=== PATIENT | female | born 1980 | race Caucasian/White ===

== ENCOUNTER → 2016-06-16 | Outpatient (CLI) | payer MEDICAID ==
[~2016-06-16] MED LIST: DOXYCYCLINE 10100 MG PO; MOTRIN 600600 MG/TAB PO; NORCO 325 MG-51 TAB PO; QUASENSE 30 MCG1 TAB PO; RITALIN 20M20 MG/TAB PO
== END ==
LOC: COL.RAD 12:03
DX: B27.90 Infectious mononucleosis, unspecified without complication (principal)

== ENCOUNTER 2016-11-02 10:27 | Emergency (ER) | payer MEDICAID ==
[~2016-11-02] VITALS: Ht 165.1 cm; Wt 83.0 kg
[2016-11-02 10:30] VITALS: TEMP 98.4
[2016-11-02] MEDS ORDERED: RITALIN 20M20 MG/TAB PO (10:35)
[2016-11-02] MEDS ORDERED: MOTRIN 600600 MG/TAB PO (10:35)
[2016-11-02] MEDS ORDERED: DOXYCYCLINE 10100 MG PO (10:36)
[2016-11-02] MEDS ORDERED: QUASENSE 30 MCG1 TAB PO (10:36)
[2016-11-02 11:30] LABS: BASO % 0.6 % (0.0-2.0); EOS # 0.2 (0.0-0.7); EOS % 2.9 % (0-4.0); GRAN # 4.5 (1.4-6.5); GRAN % 65.8 % (42.2-75.2); HEMATOCRIT 40.9 % (37.0-47.0); LYMPH # 1.7 (1.2-3.4); LYMPH % 24.6 % (20.0-51.0); MEAN CELL VOLUME 91 fl (80.0-100.0); MEAN CORPUSCULAR HEMOGLOBIN 31 pg (27.0-31.0); MEAN CORPUSCULAR HGB CONC 34 g/dl (33.0-37.0); MONO # 0.4 (0.1-0.6); MONO % 5.8 % (1.7-9.3); PLATELET COUNT 217 K/mm3 (130-400); RED BLOOD COUNT 4.52 M/mm3 (4.10-5.30); REDCELL DISTRIBUTION WIDTH-CV 12.2 % (11.5-14.5); WHITE BLOOD COUNT 6.9 K/mm3 (4.8-10.8)
[2016-11-02 11:42] LABS: ALBUMIN 4.3 gm/dL (3.5-5.0); BILIRUBIN,TOTAL 0.4 mg/dL (0.0-1.0); C-REACTIVE PROTEIN 0.9 mg/dL (0.0-0.9); CALCIUM 9.2 mg/dL (8.4-10.2); CREATININE, serum 0.71 mg/dL (0.52-1.25); POTASSIUM 4.1 mmol/L (3.4-5.0); TOTAL PROTEIN 7.6 gm/dL (6.4-8.2)
[2016-11-02] MEDS ORDERED: NORCO 325 MG-51 TAB PO (13:13)
[2016-11-02 13:50] LABS: PH 6 (5-8); URINE APPEARANCE Clear; URINE BACTERIA Rare /hpf; URINE BILIRUBIN Negative (NEGATIVE); URINE BLOOD 1+ (NEGATIVE); URINE COLOR Straw; URINE GLUCOSE Negative (NEGATIVE); URINE KETONE Negative (NEGATIVE); URINE UROBILINOGEN Negative (NEGATIVE); URINE WBC 0-2 /hpf
[2016-11-02 14:09] VITALS: BP 98/60; PULSE 61
== END 2016-11-02 14:10 | disposition home or self-care (01) ==
LOC: COL.ER 10:27
PROVIDERS: Physician Assistant
DX: R51 Headache (principal); M54.2 Cervicalgia
CPT/HCPCS: J1200; J1885; J2765; J7030

== ENCOUNTER → 2016-11-14 | Outpatient (CLI) | payer MEDICAID | LOC: COL.RAD 10:21 | DX: R51 Headache (principal); R90.89 Other abnormal findings on diagnostic imaging of central nervous system | CPT/HCPCS: A9585 ==

== ENCOUNTER 2017-07-12 18:30 | Emergency (ER) | payer SELFPAY ==
[~2017-07-12] VITALS: Ht 165.1 cm; Wt 81.8 kg
[2017-07-12 18:33] VITALS: BP 124/71; TEMP 98.6
[2017-07-12 19:38] VITALS: PULSE 88
== END 2017-07-12 19:39 | disposition home or self-care (01) ==
LOC: COL.ER 18:30
DX: M25.531 Pain in right wrist (principal); X50.3XXA Overexertion from repetitive movements, initial encounter; Y92.009 Unspecified place in unspecified non-institutional (private) residence as the place of occurrence of the external cause

== ENCOUNTER 2018-02-15 13:49 | Emergency (ER) | payer SELFPAY ==
[~2018-02-15] VITALS: Ht 165.1 cm; Wt 75.0 kg
[2018-02-15 14:00] VITALS: BP 102/76; PULSE 94; TEMP 98.3
[2018-02-15 14:26] LABS: COLLECTION METHOD CLEAN CATCH
[2018-02-15 14:37] LABS: MUCOUS Present /lpf; PH 5 (5-8); URINE APPEARANCE Clear; URINE BACTERIA None Seen /hpf; URINE BILIRUBIN Negative (NEGATIVE); URINE BLOOD 2+ (NEGATIVE); URINE COLOR Yellow; URINE GLUCOSE Negative (NEGATIVE); URINE KETONE Negative (NEGATIVE); URINE LEUKOCYTE ESTERASE Negative (NEGATIVE); URINE NITRATE Negative (NEGATIVE); URINE PROTEIN(semi-quant) Negative (NEGATIVE); URINE UROBILINOGEN Negative (NEGATIVE)
[2018-02-15 15:45] LABS: BASO # 0.1 (0.0-0.2); BASO % 0.6 % (0.0-2.0); EOS # 0.7 (0.0-0.7); EOS % 6.8 % (0-4.0); GRAN % 66.6 % (42.2-75.2); HEMATOCRIT 45.1 % (37.0-47.0); HEMOGLOBIN 15.3 g/dl (12.5-16.0); LYMPH % 19.2 % (20.0-51.0); MEAN CELL VOLUME 90 fl (80.0-100.0); MEAN CORPUSCULAR HEMOGLOBIN 31 pg (27.0-31.0); MEAN CORPUSCULAR HGB CONC 34 g/dl (33.0-37.0); MEAN PLATELET VOLUME 10.6 fl (7.4-10.4); MONO # 0.7 (0.1-0.6); MONO % 6.5 % (1.7-9.3); PLATELET COUNT 217 K/mm3 (130-400)
[2018-02-15 15:59] LABS: ALBUMIN 4.5 gm/dL (3.5-5.0); BILIRUBIN,TOTAL 0.3 mg/dL (0.0-1.0); C-REACTIVE PROTEIN 1.5 mg/dL (0.0-0.9); CALCIUM 9.3 mg/dL (8.4-10.2); CREATININE, serum 0.66 mg/dL (0.52-1.25); POTASSIUM 4.2 mmol/L (3.4-5.0); TOTAL PROTEIN 7.9 gm/dL (6.4-8.2)
[2018-02-15] MEDS ORDERED: CIPRO 500MG TA500 MG PO (17:39)
== END 2018-02-15 17:47 | disposition home or self-care (01) ==
LOC: COL.ER 13:49
PROVIDERS: Emergency Medicine
DX: R10.30 Lower abdominal pain, unspecified (principal); A69.20 Lyme disease, unspecified; Z90.49 Acquired absence of other specified parts of digestive tract; Z90.721 Acquired absence of ovaries, unilateral; Z88.0 Allergy status to penicillin; Z88.2 Allergy status to sulfonamides; Z88.8 Allergy status to other drugs, medicaments and biological substances
CPT/HCPCS: J1885; J7030; Q9967